=== PATIENT | female | born 1945 | race American Indian/Alaskan Native ===

== ENCOUNTER 2018-02-01 10:07 | Outpatient (CLI) | payer MEDICARE, OTHER | END 2018-02-01 10:08 | disposition home or self-care (01) | LOC: LABHHL 10:07 | PROVIDERS: ATTEND Specialist | DX: C50.912 Malignant neoplasm of unspecified site of left female breast (principal) | CPT/HCPCS: 88305; 88342; 88361 ==

== ENCOUNTER 2018-03-01 14:26 | Outpatient (CLI) | payer MEDICARE ==
--- NOTE | 2018-03-04 10:40 | Magnetic Resonance Report ---
BILATERAL BREAST MRI WITHOUT AND WITH CONTRAST: 03/01/18 14:26:00 CLINICAL: Newly diagnosed left breast cancer. Status post left ultrasound guided needle biopsy 01/31/18 with pathologic diagnosis of invasive carcinoma NOS, Donita grade III/III. COMPARISON:02/13/18. TECHNIQUE: Axial 1.0-mm T1 without, axial high resolution 2.0-mm T2 and axial 1.0-mm dynamic Vibrant high-resolution postcontrast T1 fat saturation sequences on a 1.5 Tabby magnet. The examination was performed with an 8 channel dedicated Sentinelle breast coil. Post processing with CAD and subtraction was performed on an [employer] workstation. 14.0 cc of Multihance was injected without incident for the contrast portion of the exam. Consent was obtained prior to the administration of the contrast. FINDINGS: Right: Minimal background parenchymal enhancement. No mass or suspicious enhancement of the right breast. No suspicious lymph nodes. Left: Minimal background parenchymal enhancement. The known cancer is an irregular enhancing mass with an adjacent hydro-Russ biopsy clip at 11 o'clock 7.7 cm from the nipple and 4.2 cm from the chest wall. It measures 10.4 x 9.8 x 8.3 mm and demonstrates heterogeneous enhancement with mixed kinetics, 182% peak enhancement and 11% type III washout. No other mass or suspicious enhancement. No suspicious lymph nodes. IMPRESSION: A 10.4 mm known left breast cancer and no additional suspicious lesion of either breast. No suspicious lymph nodes. RIGHT BI-RADS 1 -- Negative LEFT BI-RADS 6 -- Known Cancer
== END 2018-03-01 14:27 | disposition home or self-care (01) ==
LOC: SPVIMAG 14:26
PROVIDERS: ATTEND Surgery
DX: C50.212 Malignant neoplasm of upper-inner quadrant of left female breast (principal)
CPT/HCPCS: A9577; C8908; 77059

== ENCOUNTER 2018-03-20 07:41 | Day surgery (SDC) | payer MEDICARE ==
[~2018-03-20 07:41] MED LIST: WATER FOR IRRIG STERILE IR ONE
[2018-03-20] MEDS ORDERED: XYLOCAINE 1% 20 mL INFILTRATI NR (08:13)
[2018-03-20] MEDS ORDERED: ANCEF/STERILE WATER 2 GM/20 ML IV NR (09:00)
[2018-03-20] MEDS ORDERED: LACTATED RINGERS 1,000 ML ONE (09:03)
[2018-03-20] MEDS ORDERED: DIPRIVAN 10 MG/ML IV ONE (09:12)
[2018-03-20] MEDS ORDERED: PEPCID IV ONE (09:29)
[2018-03-20] MEDS ORDERED: XYLOCAINE MPF 2% ONE (09:30)
[2018-03-20] MEDS ORDERED: DECADRON ONE (09:30)
[2018-03-20] MEDS ORDERED: ZOFRAN ONE (09:30)
[2018-03-20] MEDS ORDERED: VERSED IV NR (10:00)
[2018-03-20] MEDS ORDERED: LACTATED RINGERS 1,000 ML IV SCH (10:00)
--- NOTE | 2018-03-20 10:05 | Short Stay Summary ---
Short Stay Documentation Date of service: 03/20/18 - History H&P: obtained from office - Allergies and Medications Current Medications: Allergies No Known Allergies Allergy (Verified 03/19/18 10:58) Home Medications Medication Instructions Recorded Confirmed Last Taken Type Pantoprazole [Protonix] 40 mg PO QDAY 03/19/18 03/20/18 03/13/18 History Active Medications Cefazolin Sodium (Ancef/Sterile Water 2 Gm/20 Ml) 2 gm IV PREOP NR Stop: 03/20/18 12:00 Lactated Ringer's (Lactated Ringers) 1,000 mls @ 75 mls/hr IV DIRECT CLIFTON Last Admin: 03/20/18 09:08 Dose: 75 mls/hr Midazolam HCl (Versed) 2 mg IV PREOP NR Stop: 03/20/18 23:59 - Brief post op/procedure progress note Date of procedure: 03/20/18 Pre-op diagnosis: Left breast cancer of the upper inner quadrant Post-op diagnosis: same Procedure: Left needle localization partial mastectomy and SLNB Anesthesia: GETA Findings: Left wire, clip and mass present within radiograph specimen Surgeon: MONO DAVIDSON Allergist/Immunologist: JACKI LARSON Estimated blood loss: minimal Pathology: list (left partial mastectomy and SLNBx2) Specimen disposition: to lab Condition: stable - Disposition Condition at discharge: Good Disposition: DC-01 TO HOME OR SELFCARE Short Stay Discharge Plan Activity: other (no heavy lifting) Diet: regular Wound: other (keep incision clean and dry; may shower in 24 hours; no baths, pools or lakes; do not rub or scrub incision; wear breast binder or support bra) Follow up with: PAULINO MCHUGH MD [Primary Care Provider] - 7 Days MONO DAVIDSON MD [Staff Physician] - 7 Days Prescriptions: HYDROcodone/APAP 5-325 [[place] 5/325] 1 each PO Q6HR PRN #25 tablet PRN Reason: Pain
--- NOTE | 2018-03-20 10:06 | Operative Report ---
Operative Report Operative Report: Date of Service: March 20, 2018 Preoperative diagnosis: Left breast cancer of the upper inner quadrant Postoperative diagnosis: Same Procedure: Left needle localization partial mastectomy of the inner outer quadrant and SLNB Surgeon: Davida Weldon MD [employer] Lead: Suzanne Munguia MD Anesthesia: General Findings: Left wire and clip present within radiograph specimen; 2 SLNs Complications: None EBL: Minimal Disposition: PACU in good condition Indications for operative procedure: This is a 72 year old lady with newly diagnosed left breast cancer of the upper inner quadrant, Stage I [id number] ER/MN positive. Recommendations are to proceed with breast conservation. Procedure in detail: The patient was taken to radiology for wire placement for localization known area of cancer. Patient was then taken to the operating room. Gen. anesthesia was administered. The left nipple was injected with radioisotope. The left breast and axilla were prepped and draped in the normal sterile operative fashion. The wire was identified. Timeout was performed. Gamma probe was inserted into the axilla. The area of hot spot was identified. A left axillary incision was made with a 15 blade knife with dissection taken down to the subcutaneous tissues. The axillary fascia was opened with the Bovie cautery. 2 SLNS were identified. All remaining counts were less than 10% of the highest count. Lymph nodes were sent to pathology for permanent processing. Hemostasis was obtained in the left axillary cavity. Axillary cavity was appropriately irrigated and suctioned. Hemostasis was noted. Axillary fascia was approximated and closed using interrupted 3-0 Vicryl and the skin brought together and closed using a running 4-0 Monocryl followed by skin affix. Attention was then taken towards the left breast. Left breast incision was made with a 15 blade knife and dissection taken down to subcutaneous tissues. First began raising of the superior flap with removal of the wire from the skin with dissection take down to the pectoralis muscle, followed by raising of the inferior flap, medial flap and lateral flap with all flaps taken down to the pectoralis muscle. The breast area of concern was appropriately removed posteriorly from the pectoralis muscle with the aid of the Bovie cautery. The wire was not encountered. Specimen was marked and then sent to pathology and radiology; radiograph specimen with wire, clip and mass present. Breast cavity was irrigated and hemostasis was obtained. The breast cavity and axillary cavity was anesthetized with 1% lidocaine mixed with quarter percent Marcaine. The posterior deep breast tissues were approximated and closed using interrupted 3-0 Vicryl. The subcutaneous tissues were approximated and closed using interrupted 3-0 Vicryl followed by closing of the skin with a running 4-0 Monocryl and skin affix. The patient tolerated surgery very well and she was awaken from anesthesia without any complication and transported to PACU in good condition.
--- NOTE | 2018-03-20 10:06 | Anesthesia Day of Surgery ---
Anesthesia Day of Surgery - Day of Surgery Patient Examined: Yes Patient H&P Reviewed: Yes Patient is NPO: Yes
[2018-03-20] MEDS ORDERED: DILAUDID IV PRN (10:08)
[2018-03-20] MEDS ORDERED: ZOFRAN IV PRN (10:08)
--- NOTE | 2018-03-20 10:08 | Anesthesia Consultation ---
Anesthesia Consult and Med Hx Date of service: 03/20/18 - Airway Anesthetic Teeth Evaluation: Edentulous ROM Head & Neck: Adequate Mental/Hyoid Distance: Adequate Mallampati Class: Class I Intubation Access Assessment: Good - Pulmonary Exam CTA: Yes - Cardiac Exam Cardiac Exam: RRR - Pre-Operative Health Status ASA Pre-Surgery Classification: ASA3 Proposed Anesthetic Plan: General - Central Nervous System Hx Psychiatric Problems: No - Other Systems Hx Alcohol Use: No Hx Substance Use: No Hx Cancer: Yes
[2018-03-20] MEDS ORDERED: MARCAINE 0.25% INFILTRATI ONE ×2 (10:10→10:33)
[2018-03-20] MEDS ORDERED: XYLOCAINE 1% 20 mL INFILTRATI ONE (10:33)
[2018-03-20] MEDS ORDERED: SUBLIMAZE ONE (10:35)
--- NOTE | 2018-03-20 11:01 | Mammography Report ---
NEEDLE LOCALIZATION AND HOOKWIRE PLACEMENT LEFT BREAST:03/20/18 CLINICAL: Left breast cancer. COMPARISON: 02/13/18 FINDINGS: Using mammographic guidance, 1% lidocaine local anesthesia and sterile technique, a 5.0-cm Chen hookwire was placed from a CC from above approach to localize the known cancer with an adjacent biopsy clip. Two views demonstrated satisfactory targeting. The hookwire was deployed and an additional lateral view was obtained with the hookwire only. The patient tolerated the procedure well and there were no apparent complications. IMPRESSION: Uncomplicated hookwire placement left breast.
[2018-03-20] MEDS ORDERED: WATER FOR IRRIG STERILE IR ONE (11:06)
--- NOTE | 2018-03-20 11:43 | Mammography Report ---
SPECIMEN RADIOGRAPH LEFT BREAST: 03/20/18 07:41:00 CLINICAL: Surgical excision of a known cancer. FINDINGS: The targeted spiculated mass with a localizer clip and a hookwire are identified within the specimen. IMPRESSION: Excision of the targeted lesion.
--- NOTE | 2018-03-20 11:45 | Post Anesthesia Evaluation ---
- Post Anesthesia Evaluation Patient Participated: Yes Airway Patent: Yes Stable Respiratory Function: Yes Nausea/Vomiting: No Temp > 96.8F: Yes Pain Manageable: Yes Adequeate Hydration: Yes Anesthesia Complications: No
[2018-03-20 13:13] VITALS: BP 117/70
== END 2018-03-20 13:27 | disposition home or self-care (01) ==
LOC: OR 07:41
PROVIDERS: ATTEND Surgery
DX: C50.212 Malignant neoplasm of upper-inner quadrant of left female breast (principal); Z91.09 Other allergy status, other than to drugs and biological substances; M19.90 Unspecified osteoarthritis, unspecified site; K21.9 Gastro-esophageal reflux disease without esophagitis; J45.909 Unspecified asthma, uncomplicated; I10 Essential (primary) hypertension
CPT/HCPCS: 19281; 19301; 76098; 78800; 88307; 88333; 88342; A9541; J0690; J1100; J1170; J2250; J2405; J2704; J3010; J7120

== ENCOUNTER 2018-06-08 13:51 | Emergency (ER) | payer MEDICARE ==
[2018-06-08 14:13] VITALS: BP 131/82
[2018-06-08] MEDS ORDERED: ASPIRIN PO ONE (14:13)
[2018-06-08 15:11] LABS: Hematocrit 39.1 % (30.3-42.9); Hemoglobin 12.9 gm/dl (10.1-14.3); Mean Corpuscular HGB Conc 33 % (30-34); Mean Corpuscular Hemoglobin 31 pg (28-32); Mean Corpuscular Volume 95 fl (79-97); Platelet Count 291 K/mm3 (140-440); Red Blood Count 4.11 M/mm3 (3.65-5.03); Red Cell Distribution Width 13.4 % (13.2-15.2)
[2018-06-08 15:44] LABS: BUN/Creatinine Ratio 10; Blood Urea Nitrogen 8 mg/dL (7-17); Calcium 9.8 mg/dL (8.4-10.2); Hemolysis Index 3
[2018-06-08 16:10] LABS: Basophils % (Manual) 0 % (0.0-1.8); RBC Morphology Normal; Total Cells Counted 100
[2018-06-08 19:40] LABS: Alanine Aminotransferase 7 units/L (7-56); Albumin 4.1 g/dL (3.9-5)
[2018-06-08 19:44] LABS: Bilirubin,Direct < 0.2 mg/dL (0-0.2)
== END 2018-06-08 17:35 | disposition left against medical advice (07) ==
LOC: ED 13:51
DX: R07.9 Chest pain, unspecified (principal); M54.9 Dorsalgia, unspecified; K52.9 Noninfective gastroenteritis and colitis, unspecified; Z53.21 Procedure and treatment not carried out due to patient leaving prior to being seen by health care provider
CPT/HCPCS: 36415; 80048; 80074; 83735; 83880; 84484; 85007; 85025; 93005; 93010

== ENCOUNTER 2018-11-07 08:24 | Outpatient (CLI) | payer MEDICARE ==
--- NOTE | 2018-11-08 10:33 | PET Report ---
PET/CT:11/07/18 08:24:00 CLINICAL: Left breast cancer staging. Status post left partial mastectomy with sentinel lymph node biopsy 03/20/18. Three lymph nodes were negative. The patient declined adjuvant chemotherapy and radiation therapy. On 10/03/18 she underwent an ultrasound guided needle biopsy of a left subareolar mass at 12 o'clock and pathology revealed invasive carcinoma NOS grade III/III. Breast MRI demonstrated a 5.3 cm central left breast mass involving the nipple/areolar complex and a second 3.1 cm upper-outer quadrant mass 11 cm from the nipple. Several suspicious lymph nodes were identified by MRI. RADIOPHARMACEUTICAL: 11.832mCi F18-FDG. COMPARISON: MRI breast 10/22/18 TECHNIQUE- Following intravenous injection of F-18 FDG and an approximately 60 minute uptake period, CT and PET images from the mid skull to the upper thighs were acquired with the patient in the fasted state. No contrast was administered. The CT protocol used for this PET CT study is designed for attenuation correction and anatomic localization of PET abnormalities. This barber stylist CT is not desired to produce and cannot replace, lagqr-ax-vih-art diagnostic CT scans with specific imaging protocols for different body parts and indications. Plasma glucose at the time of this test: 120g/dl. The standardized uptake values (SUV) are normalized to patient body weight and indicate the highest activity concentration (SUV max) in a given disease site. FINDINGS: Brain--Physiologic FDG uptake in the visualized regions of the brain. Neck--Physiologic FDG uptake in mucosal structures. No mass or lymphadenopathy of the neck. Chest--Physiologic FDG uptake in mediastinal blood pool and myocardium. FDG avid central retroareolar left breast mass with SUV 4.0 and a second irregular FDG avid mass of the left axillary tail with SUV 3.1. Lungs --No abnormal uptake. A 4 mm non-FDG avid peripheral left lower lobe lung nodule image 100, series 1. Pleura/pericardium--No abnormal uptake. Thoracic nodes-- A 1.0 cm FDG avid left level II axillary lymph node with SUV 2.6 and a 1.1 cm left level II axillary lymph node with less FDG uptake. No FDG avid mediastinal, supraclavicular or hilar lymph nodes. Hepatobiliary--No abnormal uptake. Liver background SUV mean, as a reference for comparing FDG studies, is 4.0 . Spleen--No abnormal uptake. Pancreas--No abnormal uptake. Adrenal Glands--No abnormal uptake. Kidneys/Ureters/Bladder--No abnormal uptake. Abdominopelvic Nodes--No abnormal uptake. Bowel/Peritoneum/Mesentery--No abnormal uptake. Pelvic organs--No abnormal uptake. Bones/Soft Tissues--A 4-mm lucent lesion of the T10 vertebral body with SUV 2.2. No other lesions identified. IMPRESSION- 1. Multicentric FDG avid left breast cancer. 2. 2 FDG avid left level II axillary lymph node metastases. 3. A 4 mm noncalcified left lower lobe pulmonary nodule is suspicious until proven to be benign by either CT surveillance or biopsy. A needle biopsy at this time is not likely feasible based on its small size. 4. Possible 4 mm lytic metastasis of the T10 vertebral body. This lesion may also be too small for percutaneous biopsy. 5. No evidence of hepatic metastasis.
== END 2018-11-07 08:25 | disposition home or self-care (01) ==
LOC: PET 08:24
PROVIDERS: ATTEND Internal Medicine Hematology & Oncology
DX: C50.412 Malignant neoplasm of upper-outer quadrant of left female breast (principal); C77.3 Secondary and unspecified malignant neoplasm of axilla and upper limb lymph nodes; K21.9 Gastro-esophageal reflux disease without esophagitis; Z90.49 Acquired absence of other specified parts of digestive tract
CPT/HCPCS: 78815; 82962; A9552

== ENCOUNTER 2019-02-14 09:54 | Outpatient (CLI) | payer MEDICARE ==
--- NOTE | 2019-02-17 13:40 | Magnetic Resonance Report ---
BILATERAL BREAST MRI WITHOUT AND WITH CONTRAST: 02/14/19 09:54:00 CLINICAL: Recurrent left triple negative breast cancer on chemotherapy. COMPARISON:10/22/18. TECHNIQUE: Axial 1.0-mm T1 without, axial high resolution 2.0-mm T2 and axial 1.0-mm dynamic Vibrant high-resolution postcontrast T1 fat saturation sequences on a 1.5 Tabby magnet. The examination was performed with an 8 channel dedicated Sentinelle breast coil. Post processing with CAD and subtraction was performed on an [employer] workstation. 20 cc of Multihance was injected without incident for the contrast portion of the exam. Consent was obtained prior to the administration of the contrast. FINDINGS: Right: Minimal background parenchymal enhancement. No mass or suspicious enhancement. No suspicious lymph nodes. Left: Moderate background parenchymal enhancement. The known cancer is a central retroareolar enhancing mass which also involves the nipple-areolar complex. The mass measures 6.9 x 4.2 x 5.7 cm compared to 5.3 x 4.4 x 4.7 cm on the last exam. It demonstrates heterogeneous enhancement with mixed kinetics, 230% peak enhancement and 16% type III washout. Increased thickening of the breast and greater enhancement of the skin. A second irregular enhancing mass invades the pectoral muscle and is located in the upper outer quadrant 11.5 cm from nipple. It measures 2.8 x 1.6 x 1.2 cm compared to 3.1 x 1.4 x 1.2 cm on the last exam. Several abnormal right axillary lymph nodes with no central fat. Moderate lymphedema of the left breast is not significant change compared to the last exam. No suspicious internal mammary lymph nodes. IMPRESSION: Known left breast cancer with a poor response to chemotherapy and increased size of the dominant retroareolar mass that involves the nipple- areolar complex. Increased skin thickening and increased skin enhancement of the left breast. A second highly suspicious mass in the upper-outer left breast invades the pectoral muscle and is not significantly changed in size compared to the previous exam. Left axillary steve metastasis. Negative right breast. BI-RADS 6 -- Known Cancer
== END 2019-02-14 09:55 | disposition home or self-care (01) ==
LOC: SPVIMAG 09:54
PROVIDERS: ATTEND Surgery
DX: C77.3 Secondary and unspecified malignant neoplasm of axilla and upper limb lymph nodes (principal); C50.412 Malignant neoplasm of upper-outer quadrant of left female breast; K21.9 Gastro-esophageal reflux disease without esophagitis; Z90.49 Acquired absence of other specified parts of digestive tract
CPT/HCPCS: A9577; C8908; 77049

== ENCOUNTER 2019-03-06 10:06 | Outpatient (CLI) | payer MEDICARE ==
--- NOTE | 2019-03-06 13:12 | PET Report ---
PET/CT:03/06/19 10:06:00 CLINICAL: Recurrent triple negative left breast cancer on chemotherapy. RADIOPHARMACEUTICAL: 14.259mCi F18-FDG. COMPARISON: 11/07/18 PET/CT TECHNIQUE- Following intravenous injection of F-18 FDG and an approximately 60 minute uptake period, CT and PET images from the mid skull to the upper thighs were acquired with the patient in the fasted state. No contrast was administered. The CT protocol used for this PET CT study is designed for attenuation correction and anatomic localization of PET abnormalities. This salesperson burial plots CT is not desired to produce and cannot replace, mzsvi-pe-igt-art diagnostic CT scans with specific imaging protocols for different body parts and indications. Plasma glucose at the time of this test: 125g/dl. The standardized uptake values (SUV) are normalized to patient body weight and indicate the highest activity concentration (SUV max) in a given disease site. FINDINGS: Brain--Physiologic FDG uptake in the visualized regions of the brain. Neck--Physiologic FDG uptake in mucosal structures. No mass or lymphadenopathy. Chest--The 6.5 cm FDG of a retroareolar breast mass is not significantly change in size compared to the previous exam. The mass extends to the nipple areolar complex and FDG uptake is slightly greater within she be 4.1 Physiologic FDG uptake in mediastinal blood pool and myocardium. Lungs--No abnormal uptake. Stable 4 mm noncalcified left lower lobe lung nodule image 90, series 1. No other lung nodule or mass. Pleura/pericardium--No abnormal uptake. Thoracic nodes--The previously described left axillary lymph nodes are smaller with no FDG uptake. The larger of the 2 measures 9 x 8 mm compared to 10 x 10 mm and the smaller lymph node measures 9 x 4 mm compared to 11 x 8 mm. No mediastinal or hilar lymphadenopathy. Hepatobiliary--No abnormal uptake. Liver background SUV mean, as a reference for comparing FDG studies, is 3.2 compared to 3.7 on the last exam. No liver mass. Spleen--No abnormal uptake. Pancreas--No abnormal uptake. Adrenal Glands--No abnormal uptake. Kidneys/Ureters/Bladder--No abnormal uptake. Abdominopelvic Nodes--No abnormal uptake. Bowel/Peritoneum/Mesentery--No abnormal uptake. Pelvic organs--No abnormal uptake. Bones/Soft Tissues--No abnormal uptake and no suspicious bone lesions. The previously described 4 mm lucent lesion of the T10 vertebral body is no longer identified. IMPRESSION-A mixed response to therapy with decreased size and resolution of FDG uptake in left axillary lymph nodes but slightly greater FDG uptake in the left breast masses. A stable 4 mm noncalcified left lower lobe lung nodule. No evidence of hepatic, pulmonary or skeletal metastasis.
== END 2019-03-06 10:07 | disposition home or self-care (01) ==
LOC: PET 10:06
PROVIDERS: ATTEND Surgery
DX: C50.412 Malignant neoplasm of upper-outer quadrant of left female breast (principal); R59.0 Localized enlarged lymph nodes; K21.9 Gastro-esophageal reflux disease without esophagitis; Z90.49 Acquired absence of other specified parts of digestive tract; R73.09 Other abnormal glucose
CPT/HCPCS: 78815; 82962; A9552

== ENCOUNTER 2019-06-03 06:09 | Day surgery (SDC) | payer MEDICARE, OTHER ==
--- NOTE | 2019-05-28 10:11 | Anesthesia Consultation ---
Anesthesia Consult and Med Hx Date of service: 05/28/19 - Airway Anesthetic Teeth Evaluation: Dentures ROM Head & Neck: Adequate Mental/Hyoid Distance: Adequate Mallampati Class: Class II Intubation Access Assessment: Good - Pulmonary Exam CTA: Yes - Cardiac Exam Cardiac Exam: RRR - Pre-Operative Health Status ASA Pre-Surgery Classification: ASA2 Proposed Anesthetic Plan: General Nerve Block: B/L Pec Block - Pulmonary Hx Smoking: No Hx Sleep Apnea: No (DEVIN PRE SCREEN LOW RISK.) - Cardiovascular System Hx Hypertension: No Hx Cardia Arrhythmia: Yes (started after chemo but it is not sfib) - Central Nervous System Hx Back Pain: Yes Hx Psychiatric Problems: No - Hematic Hx Anemia: Yes (WITH CHEMO) - Other Systems Hx Alcohol Use: No Hx Substance Use: No Hx Cancer: Yes (LEFT BREAST LUMPECTOMY WITH CHEMO 2017) - Additional Comments Anesthesia Medical History Comments: Pt on Eliquis for PE , will stop 3 days before surgery, also has arrythmia and pt obtained cardiac clerance and RN will call [facility] to get a copy of this .
[2019-05-28 10:42] LABS: Hemoglobin 11.8 gm/dl (10.1-14.3); Mean Corpuscular HGB Conc 33 % (30-34); Mean Corpuscular Volume 108 fl (79-97); Platelet Count 305 K/mm3 (140-440); Red Blood Count 3.33 M/mm3 (3.65-5.03); Red Cell Distribution Width 20.4 % (13.2-15.2)
[2019-05-28 10:49] LABS: BUN/Creatinine Ratio 10; Blood Urea Nitrogen 8 mg/dL (7-17); Calcium 9.7 mg/dL (8.4-10.2); Hemolysis Index 21
[2019-05-28 11:32] LABS: Alanine Aminotransferase 22 units/L (7-56); Albumin 3.8 g/dL (3.9-5)
[2019-05-28 11:54] LABS: Basophils % (Manual) 0 % (0.0-1.8); Eosinophils % (Manual) 0 % (0.0-4.3); Total Cells Counted 100
[2019-05-28 11:55] LABS: Anisocytosis Few; Ovalocytes Rare; Poikilocytosis Few
[2019-05-28 11:56] LABS: Platelet Estimate Consistent w Auto
[~2019-06-03 06:09] MED LIST changes: +ANCEF/STERILE WATER 2 GM/20 ML IV NR; +LACTATED RINGERS 1,000 ML IV SCH; +SUBLIMAZE IV PRN; +VERSED IV NR; -WATER FOR IRRIG STERILE IR ONE
[2019-06-03] MEDS ORDERED: SUBLIMAZE ONE (07:06)
[2019-06-03] MEDS ORDERED: DIPRIVAN 10 MG/ML IV ONE (07:07)
[2019-06-03] MEDS ORDERED: METHYLENE BLUE ONE (07:37)
[2019-06-03] MEDS ORDERED: NACL P/F VIAL (10 ML) 0 ML ONE (07:37)
[2019-06-03 07:42] LABS: INR 1.08 (0.87-1.13)
[2019-06-03 07:48] LABS: Hematocrit 35.9 % (30.3-42.9); Hemoglobin 12.1 gm/dl (10.1-14.3); Mean Corpuscular HGB Conc 34 % (30-34); Mean Corpuscular Volume 108 fl (79-97); Platelet Count 218 K/mm3 (140-440); Red Blood Count 3.34 M/mm3 (3.65-5.03); Red Cell Distribution Width 18.7 % (13.2-15.2)
[2019-06-03] MEDS ORDERED: DECADRON ONE (07:48)
[2019-06-03 08:27] LABS: Anisocytosis Few; Band Neutrophils # (Manual) 0.1 K/mm3; Total Cells Counted 100
[2019-06-03 08:28] LABS: Platelet Estimate Consistent w Auto
[2019-06-03] MEDS ORDERED: NEURONTIN PO NR (08:30)
[2019-06-03] MEDS ORDERED: NEURONTIN ONE (08:38)
[2019-06-03 14:47] VITALS: BP 114/60
== END 2019-06-03 06:10 | disposition home or self-care (01) ==
LOC: OR 06:09
PROVIDERS: ATTEND Surgery
DX: C50.912 Malignant neoplasm of unspecified site of left female breast (principal); K21.9 Gastro-esophageal reflux disease without esophagitis; M19.90 Unspecified osteoarthritis, unspecified site; Z53.8 Procedure and treatment not carried out for other reasons; Z79.899 Other long term (current) drug therapy; Z86.711 Personal history of pulmonary embolism; Z90.49 Acquired absence of other specified parts of digestive tract; Z98.890 Other specified postprocedural states; Z86.2 Personal history of diseases of the blood and blood-forming organs and certain disorders involving the immune mechanism
CPT/HCPCS: 36415; 80053; 85007; 85025; 85610; 85730; J0690; J1100; J2250; J3010; J7120; 64450; J2704; Q9968

== ENCOUNTER 2019-06-11 07:59 | Observation (INO) | payer MEDICARE ==
[~2019-06-11 07:59] MED LIST changes: -LACTATED RINGERS 1,000 ML IV SCH; +MARCAINE 0.25% INFILTRATI ONE; -SUBLIMAZE IV PRN; -VERSED IV NR; +XYLOCAINE 1% 20 mL ONE
[2019-06-11] MEDS ORDERED: ZOFRAN IV PRN ×2 (08:41→16:49)
[2019-06-11] MEDS ORDERED: SUBLIMAZE IV PRN (08:41)
[2019-06-11] MEDS ORDERED: TYLENOL PO NR (08:42)
--- NOTE | 2019-06-11 08:43 | Anesthesia Day of Surgery ---
Anesthesia Day of Surgery - Day of Surgery Patient Examined: Yes Patient H&P Reviewed: Yes Patient is NPO: Yes Beta Blockers: Yes
--- NOTE | 2019-06-11 08:47 | Anesthesia Consultation ---
Anesthesia Consult and Med Hx Date of service: 06/11/19 - Airway Anesthetic Teeth Evaluation: Dentures, Edentulous ROM Head & Neck: Adequate Mental/Hyoid Distance: Adequate Mallampati Class: Class II Intubation Access Assessment: Good - Pre-Operative Health Status ASA Pre-Surgery Classification: ASA3 Proposed Anesthetic Plan: General Nerve Block: PEC; requested to do in OR after pt asleep - Pulmonary Hx Smoking: No Hx Sleep Apnea: No (DEVIN PRE SCREEN LOW RISK.) - Cardiovascular System Hx Hypertension: No (ECHO [id number]. ETT [id number]) Hx Coronary Artery Disease: No (+Cardiac clearance) Hx Cardia Arrhythmia: Yes (started after chemo but it is not sfib) - Central Nervous System Hx Back Pain: Yes Hx Psychiatric Problems: No - Gastrointestinal Hx Gastroesophageal Reflux Disease: Yes (Hiatal hernia) - Hematic Hx Anemia: Yes (WITH CHEMO) - Other Systems Hx Alcohol Use: No Hx Substance Use: No Hx Cancer: Yes (LEFT BREAST LUMPECTOMY WITH CHEMO 2018) - Additional Comments Anesthesia Medical History Comments: Pt here recently and got cancelled because of WBC
[2019-06-11] MEDS ORDERED: PROTONIX PO NR (08:52)
[2019-06-11] MEDS ORDERED: NEURONTIN PO NR (09:00)
[2019-06-11] MEDS ORDERED: LACTATED RINGERS 1,000 ML IV SCH ×2 (09:00→17:00)
[2019-06-11] MEDS ORDERED: VERSED IV NR (09:00)
[2019-06-11] MEDS ORDERED: DIPRIVAN 10 MG/ML IV ONE (09:02)
[2019-06-11] MEDS ORDERED: XYLOCAINE MPF 2% ONE (09:03)
[2019-06-11] MEDS ORDERED: DECADRON ONE ×2 (09:03→10:38)
[2019-06-11] MEDS ORDERED: ZEMURON IV ONE (09:03)
[2019-06-11] MEDS ORDERED: SUBLIMAZE ONE (09:03)
[2019-06-11 09:53] LABS: INR 1.13 (0.87-1.13)
[2019-06-11 09:54] LABS: Partial Thromboplastin Time 22.1 Sec. (24.2-36.6)
[2019-06-11] MEDS ORDERED: METHYLENE BLUE ONE (10:32)
[2019-06-11] MEDS ORDERED: MARCAINE 0.25% INFILTRATI ONE (10:38)
[2019-06-11] MEDS ORDERED: NACL INFILTRATI ONE (10:40)
[2019-06-11] MEDS ORDERED: METHYLENE BLUE IRRIGATION ONE (10:40)
[2019-06-11] MEDS ORDERED: WATER FOR IRRIG STERILE IR ONE ×2 (10:40)
[2019-06-11] MEDS ORDERED: NACL 0.9% IR ONE (10:40)
[2019-06-11] MEDS ORDERED: PHENYLEPHRINE/NS Syringe 1,000 MCG/10 ML IV ONE (10:54)
[2019-06-11] MEDS ORDERED: LACTATED RINGERS 1,000 ML ONE ×2 (13:46→15:45)
--- NOTE | 2019-06-11 15:01 | XRay Report ---
LEFT BREAST SPECIMEN RADIOGRAPH HISTORY: Mastectomy. FINDINGS/IMPRESSION: A biopsy clip and scattered calcifications are identified within the specimen. Signer Name: Darrel Garcia MD Signed: 06/11/2019 2:57 PM Workstation Name: [id number]
--- NOTE | 2019-06-11 16:48 | Short Stay Summary ---
Short Stay Documentation Date of service: 06/11/19 - History H&P: obtained from office - Allergies and Medications Current Medications: Allergies meperidine [From Demerol] Adverse Reaction (Verified 06/11/19 14:22) Unknown PT STATED IT MADE HER FEEL FUNNY Home Medications Medication Instructions Recorded Confirmed Last Taken Type Pantoprazole [Protonix] 40 mg PO QDAY 03/19/18 06/11/19 05/30/19 22:30 History Apixaban [Eliquis] 5 mg PO BID 05/22/19 06/11/19 06/07/19 09:00 History Digoxin [Lanoxin] 0.125 mg PO DAILY 05/22/19 06/11/19 06/10/19 09:00 History Metoprolol [Lopressor] 25 mg PO BID 05/22/19 06/11/19 06/10/19 21:00 History Sucralfate [Carafate] 1 gm PO ACHS 05/22/19 06/11/19 05/30/19 10:30 History Active Medications Cefazolin Sodium (Ancef/Sterile Water 2 Gm/20 Ml) 2 gm IV PREOP NR Stop: 06/11/19 23:59 Fentanyl (Sublimaze) 50 mcg IV Q5MIN PRN PRN Reason: Pain , Severe (7-10) Stop: 06/11/19 20:00 Hydromorphone HCl (Dilaudid) 0.5 mg IV Q10MIN PRN PRN Reason: Pain , Severe (7-10) Stop: 06/11/19 20:00 Lactated Ringer's (Lactated Ringers) 1,000 mls @ 100 mls/hr IV DIRECT CLIFTON Last Admin: 06/11/19 09:35 Dose: 100 mls/hr Documented by: Midazolam HCl (Versed) 2 mg IV PREOP NR Stop: 06/11/19 23:59 Last Admin: 06/11/19 10:30 Dose: 2 mg Documented by: Ondansetron HCl (Zofran) 4 mg IV ONCE PRN PRN Reason: Nausea And Vomiting - Brief post op/procedure progress note Date of procedure: 06/11/19 Pre-op diagnosis: Left breast cancer Post-op diagnosis: same Procedure: Right total mastectomy; left total mastectomy with SLNB followed by ALND Anesthesia: GETA Findings: Right total mastectomy; left breast cancer of the NAC and central breast with nipple involvement with positive SLNB followed by ALND Surgeon: MONO DAVIDSON Trapper Animal: MACARIO PANIAGUA Estimated blood loss: other (200 ml) Pathology: list (bilateral mastectomy; left SLNB, left ALND) Specimen disposition: to lab Condition: stable - Disposition Condition at discharge: Good Disposition: DC/TX-02 SHRT-TRM GEN HOSP IP Short Stay Discharge Plan Activity: other (no heavy lifting) Diet: regular Wound: keep clean and dry Follow up with: PAULINO MCHUGH MD [Primary Care Provider] - 7 Days MONO DAVIDSON MD [Staff Physician] - 7 Days
[2019-06-11] MEDS ORDERED: REGLAN PO PRN (16:49)
[2019-06-11] MEDS ORDERED: TYLENOL PO PRN (16:49)
[2019-06-11] MEDS ORDERED: PERCOCET 5/325 PO PRN (16:49)
[2019-06-11] MEDS ORDERED: BENADRYL PO PRN (16:49)
[2019-06-11] MEDS ORDERED: SODIUM CHLORIDE FLUSH SYRINGE 10 ML IV PRN (16:49)
--- NOTE | 2019-06-11 16:49 | Operative Report ---
Operative Report Operative Report: Operative Report: Date of Service: June 11, 2019 Preoperative diagnosis: Left breast cancer of the upper outer quadrant, central breast, NAC with overlapping areas Postoperative diagnosis: Same Procedure: Left total mastectomy with sentinel lymph node biopsy followed by ALND and right total mastectomy and removal of bilateral implants Surgeon: Davida Weldon M.D. Anesthesia: Gen. Findings: Left breast clip present within left total mastectomy. 1 sentinel lymph node identified and positive for malignancy on frozen section of pathology and proceeded with left axillary lymph node dissection Complications: None Drains:19 [place] DOUG drains bilaterally Estimated blood loss: 200 cc Disposition: PACU in good condition Indications for operative procedure: This is a 74-year-old lady with stage II/III recurrent left breast cancer of the upper outer, central breast, and NAC with overlapping areas, triple negative. She was diagnosed with left breast cancer in 2018 and underwent a left partial mastectomy with SLNB and declined standard of care recommendations of adjuvant XRT and adjuvant chemotherapy. She then later reocurred and underwent [place] based chemotherapy. Patient noted for persistent and worsening disease and recommendations were to proceed with a left total mastectomy with SLNB and possible ALND. She wished to proceed with a prophylactic right mastectomy. She wished to proceed with the above procedure. Procedure in detail: The patient was taken to the operating room and was placed supine. Gen. anesthesia was administered. The left nipple was injected with radioisotope and 1 cc of methylene blue. Bilateral chest and axillas were prepped and draped in the normal sterile operative fashion. Timeout was performed. Typical mastectomy incision markings were made and left breast was noted for crusting and drainage of the nipple and palpable mass effect the the NAC. Attention was taken toward the right breast first. First began raising of the superior flap to the level of the clavicle superiorly and posteriorly to the pectoralis muscle. Followed by raising of the medial flap to the level of the sternum and posteriorly to the pectoralis muscle. Followed by raising of the lateral flap to the level of the latissimus dorsi muscle and taken down posteriorly. Followed by raising of the inferior flap to the level of the inframammary fold taken posterior to the pectoralis muscle. The mastectomy/breast was removed from the pectoralis muscle without incident. The specimen was appropriately marked and sent to pathology. Hemostasis was obtained. The port was noted and unharmed. A 19 Fr drain was placed. The subcutaneous tissues were approximated and closed using interrupted 3-0 Vicryl and the skin closed using 4-0 running Monocryl and dermabond. Attention was taken towards the left breast. A gamma probe was inserted into the axilla to identify the sentinel lymph node location with uptake noted. A skin incision was made with a 10 blade knife and dissection taken down to the subcutaneous tissues. First began raising of the superior flap to the level of the clavicle superiorly and posteriorly to the pectoralis muscle. Followed by raising of the medial flap to the level of the sternum and posteriorly to the pectoralis muscle. Followed by raising of the lateral flap to the level of the latissimus dorsi muscle and taken down posteriorly. The gamma probe was inserted into the axilla, the axillary fascia was opened and bulky axillary lymph node was noted that was also identfied as sentinel lymph node. Patient with probable steve involvement on PET scan. Lymph node was sent to pathology with findings positive for malignancy noted on frozen section. Then proceeded with raising of the inferior flap to the level of the inframammary fold taken posterior to the pectoralis muscle. The mastectomy/breast was removed from the pectoralis muscle without incident. The specimen was appropriately marked and sent to radiology with findings of breast clip present and sent to pathology. Attention was then taken towards the left axilla. First began opening of the axillary fascia further. The lattismus dorsi muscle was identified and followed superiorly. Then proceeded with identification of the axillary vein followed by identification of the thoracodorsal bundle and long thoracic nerve. Axillary lymph nodes were then removed from the above boundaries with the aid of the bovie cautery in a sweeping-like motion and then sent to pathology. Axillary lymph nodes from level I and II were removed. Both nerves were identified and unharmed. Some bulky lymphadenopathy was noted. Hemostasis was noted. The chest wall was irrigated and suctioned. Hemostasis was obtained. Additional skin margins were then resected given concerns of positive skin margins, patient with prior skin punch biopsy positive for malignancy. The subcutaneous tissues were approximated and closed using interrupted 3-0 Vicryl and the skin closed using 4-0 running Monocryl and PICCO dressing placed. She tolerated surgery very well and was awaken from anesthesia without any complications and then transported to PACU in good condition.
[2019-06-11] MEDS: DILAUDID IV PRN ×2 (16:50→17:00)
[2019-06-11] MEDS: COLACE PO SCH (21:35)
[2019-06-11] MEDS: MORPHINE IV PRN (23:24)
--- NOTE | 2019-06-12 07:28 | Progress Note ---
Assessment and Plan This is a 74 year old lady POD# left MRM and right total mastectomy for advanced stage left breast cancer. 1. No acute events overnight, pain in good control. 2. Bilateral chest incisions healing well. 3. Will resume Eloquis today, history of PE and patient refused IVC filter. 4. OOB to hallway. 5. D/C planning for tomorrow. Subjective Date of service: 06/12/19 Principal diagnosis: Left breast cancer Interval history: POD#1 left MRM, right total mastectomy Objective - Constitutional Vitals: Vital Signs - 12hr 06/11/19 06/11/19 06/11/19 20:13 23:24 23:54 Temperature 98.6 F Respiratory 18 18 18 Rate Blood Pressure 138/82 06/11/19 06/12/19 23:59 04:15 Temperature 98.4 F 98.3 F Respiratory 18 18 Rate Blood Pressure 127/74 106/63 General appearance: Present: no acute distress - EENT Eyes: PERRL, EOM intact ENT: hearing intact, clear oral mucosa, poor dentition - Neck Neck: supple, normal ROM - Respiratory Respiratory effort: normal Respiratory: bilateral: CTA - Breasts Breasts: other (bilateral chest incisions c/d/i; no hematoma; left PICCO dressing in place; DOUG drains to bulb sucton) - Cardiovascular Rhythm: regular Heart Sounds: Present: S1 & S2 Extremities: no ischemia, pulses intact, pulses symmetrical, No edema, normal temperature, normal color, Full ROM - Gastrointestinal General gastrointestinal: Present: soft, non-tender, non-distended - Genitourinary Female genitourinary: deferred - Integumentary Integumentary: clear, warm, dry - Musculoskeletal Musculoskeletal: strength equal bilaterally - Neurologic Neurologic: CNII-XII intact, moves all extremities - Psychiatric Psychiatric: appropriate mood/affect, intact judgment & insight, memory intact, cooperative - Labs Labs: Abnormal lab results 06/11/19 Range/Units 09:30 APTT 22.1 L (24.2-36.6) Sec. Medications & Allergies - Medications Allergies/Adverse Reactions: Allergies meperidine [From Demerol] Adverse Reaction (Verified 06/11/19 14:22) Unknown PT STATED IT MADE HER FEEL FUNNY Home Medications: Home Medications Medication Instructions Recorded Confirmed Last Taken Type Pantoprazole [Protonix] 40 mg PO QDAY 03/19/18 06/11/19 05/30/19 22:30 History Apixaban [Eliquis] 5 mg PO BID 05/22/19 06/11/19 06/07/19 09:00 History Digoxin [Lanoxin] 0.125 mg PO DAILY 05/22/19 06/11/19 06/10/19 09:00 History Metoprolol [Lopressor] 25 mg PO BID 05/22/19 06/11/19 06/10/19 21:00 History Sucralfate [Carafate] 1 gm PO ACHS 05/22/19 06/11/19 05/30/19 10:30 History Active Medications: Generic Name Dose Route Start Last Admin Trade Name Freq PRN Reason Stop Dose Admin Acetaminophen 650 mg 06/11/19 16:49 Tylenol PO Q6H PRN Pain MILD(1-3)/Fever >100.5/ABILEY Diphenhydramine HCl 25 mg 06/11/19 16:49 Benadryl PO Q8H PRN Itching Docusate Sodium 100 mg 06/11/19 22:00 06/11/19 21:35 Colace PO 100 mg BID [place] Administration Lactated Ringer's 1,000 mls @ 100 mls/hr 06/11/19 09:00 06/11/19 09:35 Lactated Ringers IV 100 mls/hr DIRECT [place] Administration Lactated Ringer's 1,000 mls @ 125 mls/hr 06/11/19 17:00 06/11/19 20:14 Lactated Ringers IV 125 mls/hr DIRECT [place] Administration Metoclopramide HCl 10 mg 06/11/19 16:49 06/12/19 04:29 Reglan PO 10 mg Q6H PRN Administration Nausea And Vomiting Morphine Sulfate 2 mg 06/11/19 16:52 06/11/19 23:24 Morphine IV 2 mg Q4H PRN Administration Pain, Moderate (4-6) Ondansetron HCl 4 mg 06/11/19 08:41 Zofran IV ONCE PRN Nausea And Vomiting Ondansetron HCl 4 mg 06/11/19 16:49 Zofran IV Q8H PRN N/V unrelieved by Reglan Oxycodone/Acetaminophen 1 tab 06/11/19 16:49 Percocet 5/325 PO Q6H PRN Pain, Moderate (4-6) Pantoprazole Sodium 40 mg 06/12/19 10:00 Protonix PO QDAY [place] Sodium Chloride 10 ml 06/11/19 16:49 Sodium Chloride Flush Syringe 10 Ml IV PRN PRN LINE FLUSH
[2019-06-12] MEDS: PROTONIX PO SCH (09:52)
[2019-06-12] MEDS: COLACE PO SCH ×2 (09:52→23:01)
[2019-06-12] MEDS: ELIQUIS PO SCH ×2 (09:53→23:01)
[2019-06-12] MEDS: MORPHINE IV PRN ×3 (10:20→23:21)
--- NOTE | 2019-06-13 07:37 | Progress Note ---
Assessment and Plan This is a 74 year old lady POD#2 left MRM and right total mastectomy for advanced stage left breast cancer. 1. No acute events overnight, pain in good control. 2. Bilateral chest incisions healing well. 3. Resumed Eloquis yesterday and no concerns for bleeding, history of PE and patient refused IVC filter. 4. OOB to hallway. 5. D/C planning for today, followup on Sunday. Subjective Date of service: 06/13/19 Principal diagnosis: Left breast cancer Interval history: POD#2 left MRM, right total mastectomy Objective - Constitutional Vitals: Vital Signs - 12hr 06/12/06/12/06/12/19 20:12 23:21 23:39 Temperature 98.9 F 98.2 F Pulse Rate 78 75 Respiratory 20 18 20 Rate Blood Pressure 117/58 130/74 O2 Sat by Pulse 94 96 Oximetry 06/12/1906/13/06/13/19 23:51 04:05 04:50 Temperature 98.2 F Pulse Rate 87 Respiratory 18 20 18 Rate Blood Pressure 119/63 O2 Sat by Pulse 94 Oximetry 06/13/19 05:50 Temperature Pulse Rate Respiratory 18 Rate Blood Pressure O2 Sat by Pulse Oximetry General appearance: Present: no acute distress - EENT Eyes: PERRL, EOM intact ENT: hearing intact, clear oral mucosa, poor dentition Ears: bilateral: normal - Neck Neck: supple, normal ROM - Respiratory Respiratory effort: normal - Breasts Breasts: other (bilateral chest incisions healing well; no hematoma; skin well perfused; DOUG drains to bulb suction; left PICCO in place/intact) - Cardiovascular Rhythm: regular Extremities: no ischemia, pulses intact, pulses symmetrical, No edema, normal temperature, normal color, Full ROM - Gastrointestinal General gastrointestinal: Present: soft, non-tender, non-distended Rectal Exam: deferred - Genitourinary Female genitourinary: deferred - Integumentary Integumentary: clear, warm, dry - Musculoskeletal Musculoskeletal: strength equal bilaterally - Neurologic Neurologic: CNII-XII intact, focal deficits, moves all extremities - Psychiatric Psychiatric: appropriate mood/affect, intact judgment & insight, memory intact, cooperative Medications & Allergies - Medications Allergies/Adverse Reactions: Allergies meperidine [From Demerol] Adverse Reaction (Verified 06/11/19 14:22) Unknown PT STATED IT MADE HER FEEL FUNNY Home Medications: Home Medications Medication Instructions Recorded Confirmed Last Taken Type Pantoprazole [Protonix] 40 mg PO QDAY 03/19/18 06/11/19 05/30/19 22:30 History Apixaban [Eliquis] 5 mg PO BID 05/22/19 06/11/19 06/07/19 09:00 History Digoxin [Lanoxin] 0.125 mg PO DAILY 05/22/19 06/11/19 06/10/19 09:00 History Metoprolol [Lopressor] 25 mg PO BID 05/22/19 06/11/19 06/10/19 21:00 History Sucralfate [Carafate] 1 gm PO ACHS 05/22/19 06/11/19 05/30/19 10:30 History HYDROcodone/APAP 5-325 [[place] 1 each PO Q6HR PRN #30 tablet 06/13/19 Unknown Rx 5/325] Active Medications: Generic Name Dose Route Start Last Admin Trade Name Narendraq PRN Reason Stop Dose Admin Acetaminophen 650 mg 06/11/19 16:49 Tylenol PO Q6H PRN Pain MILD(1-3)/Fever >100.5/BAILEY Apixaban 5 mg 06/12/19 10:00 06/12/19 23:01 Eliquis PO 5 mg BID [place] Administration Protocol Diphenhydramine HCl 25 mg 06/11/19 16:49 Benadryl PO Q8H PRN Itching Docusate Sodium 100 mg 06/11/19 22:00 06/12/19 23:01 Colace PO 100 mg BID [place] Administration Lactated Ringer's 1,000 mls @ 125 mls/hr 06/11/19 17:00 06/11/19 20:14 Lactated Ringers IV 125 mls/hr DIRECT [place] Administration Metoclopramide HCl 10 mg 06/11/19 16:49 06/12/19 04:29 Reglan PO 10 mg Q6H PRN Administration Nausea And Vomiting Morphine Sulfate 2 mg 06/11/19 16:52 06/12/19 23:21 Morphine IV 2 mg Q4H PRN Administration Pain, Moderate (4-6) Ondansetron HCl 4 mg 06/11/19 16:49 Zofran IV Q8H PRN N/V unrelieved by Reglan Oxycodone/Acetaminophen 1 tab 06/11/19 16:49 06/13/19 04:50 Percocet 5/325 PO 1 tab Q6H PRN Administration Pain, Moderate (4-6) Pantoprazole Sodium 40 mg 06/12/19 10:00 06/12/19 09:52 Protonix PO 40 mg QDAY [place] Administration Sodium Chloride 10 ml 06/11/19 16:49 Sodium Chloride Flush Syringe 10 Ml IV PRN PRN LINE FLUSH
[2019-06-13 08:58] VITALS: BP 121/59
[2019-06-13] MEDS: PROTONIX PO SCH (09:08)
== END 2019-06-13 10:00 | disposition home or self-care (01) ==
LOC: OR 07:59 → OB 16:50
PROVIDERS: ADMIT Surgery; ATTEND Surgery
DX: C50.412 Malignant neoplasm of upper-outer quadrant of left female breast (principal); C50.112 Malignant neoplasm of central portion of left female breast; C50.812 Malignant neoplasm of overlapping sites of left female breast; C50.012 Malignant neoplasm of nipple and areola, left female breast; Z79.899 Other long term (current) drug therapy
CPT/HCPCS: 19303; 19330; 36415; 38525; 38792; 76098; 78800; 85610; 85730; 88305; 88307; 88309; 88331; 88333; 96374; 96375; 96376; A9541; G0378; J0690; J1100; J1170; J2250; J2270; J2370; J2405; J2704; J3010; J7120; Q9968

== ENCOUNTER 2020-01-16 15:34 | Outpatient (CLI) | payer MEDICARE, OTHER | END 2020-01-16 15:35 | disposition home or self-care (01) | LOC: LABHHL 15:34 | PROVIDERS: ATTEND Surgery | DX: R22.2 Localized swelling, mass and lump, trunk (principal) | CPT/HCPCS: 88305; 88341; 88342 ==